=== PATIENT | female | born 1990 | race Caucasian/White ===

== ENCOUNTER → 2017-12-11 22:50 | Observation (INO) ==
[2017-12-11 19:58] LABS: Bilirubin,Urine Negative (Negative); Blood,Urine Moderate (Negative); Clarity,Urine Cloudy (Clear); Color,Urine Yellow (Yellow); Glucose,Urine (UA) Normal (Normal); Ketones,Urine Trace mg/dL (Negative); Leukocyte Esterase,Urine Large (Negative); Nitrite,Urine Negative (Negative); PH,Urine 6.5 pH Units (5.0-8.0); Protein,Urine 30 mg/dL (Neg-Trace); Specific Gravity,Urine 1.007 (1.010-1.025); Urobilinogen,Urine Normal (Normal)
[2017-12-11 20:01] LABS: Hyaline Casts,Urine None Seen per lpf (None-Few); Squamous Epithelial Cell,Urine Moderate per lpf (None-Few); WBC,Urine 30-50 per hpf (0-3)
[2017-12-11 20:02] LABS: Amphetamine Screen,Urine Negative ng/mL (Cutoff=1000); Barbiturate Screen,Urine Negative ng/mL (Cutoff=200); Benzodiazepines Screen,Urine Negative ng/mL (Cutoff=200); Cannabinoid Screen,Urine Positive ng/mL (Cutoff = 50); Cocaine Screen,Urine Negative ng/mL (Cutoff= 300); Opiate Screen,Urine Negative ng/mL (Cutoff=300); Phencyclidine Screen,Urine Negative ng/mL (Cutoff=25)
[2017-12-11 20:17] LABS: Bacteria,Urine Few per hpf (None-Few); RBC,Urine 0-3 per hpf (0-3)
--- NOTE | 2017-12-11 21:22 | OB/GYN Progress Note ---
Date of Encounter: 12/11/17 Time of Encounter: 21:18 - Assessment and Plan (1) 27 weeks gestation of Current Visit: Yes Status: Acute Admit for observation of labor evaluation. Discussed plan of care and course with Dr. Chisholm. (2) Vaginal discharge during in second trimester Current Visit: Yes Status: Acute Collect vaginosis panel. Treat as indicated. (3) Placenta previa antepartum in second trimester Current Visit: Yes Status: Acute Small amount of pink discharge noted. Patient has a known previa and subchorionic bleed on U/S as of 11/27/2017. Follow up as scheduled with Dr. Faith. Subjective - Subjective Principal diagnosis: Nausea, vaginal discharge Interval history: Patient is a at 27 weeks who arrives today with complaint of nausea and vomiting along with some vaginal discharge/bleeding. She is known to have a placenta previa as of an U/S performed on 11/27/2017. She denies intercourse in the last 48 hours, states she was put on pelvic rest and has been compliant. She reports positive movement, denies leakage of fluid. States she has had vaginal bleeding for the past couple of months and Dr. Faith is aware. Antepartum ROS: vaginal bleeding, movement normal, no loss of fluid Objective - Vital Signs Vital Signs: Intake and Output 12/11/17 12/11/17 12/11/17 07:59 15:59 23:59 Other: Weight 62.7 kg Patient Weight 12/11/17 23:59 Weight 62.7 kg - Exam FHR: category 1 FHR comments: FHR 130 bpm, moderate variability, +10x10 accels, no decels. Appropriate for gestational age. No uterine activity noted. Auscultation: bilateral: normal Abdomen: Present: normal appearance, soft, gravid Uterus: Present: normal Comments: Deferred vaginal exam due to placenta previa. - Labs Labs: Abnormal lab results Urine Clarity Cloudy (Clear) A 12/11/17 19:35 Ur Specific [place] 1.007 (1.010-1.025) L 12/11/17 19:35 Urine Protein 30 mg/dL (Neg-Trace) H 12/11/17 19:35 Urine Ketones Trace mg/dL (Negative) H 12/11/17 19:35 Urine Blood Moderate (Negative) H 12/11/17 19:35 Ur Leukocyte Esterase Large (Negative) H 12/11/17 19:35 Urine Microscopic WBC 30-50 per hpf (0-3) H 12/11/17 19:35 Ur Squamous Epith Cells Moderate per lpf (None-Few) H 12/11/17 19:35 Ur Culture Indicated? YES (NO) A 12/11/17 19:35 U Marijuana (THC) Screen Positive ng/mL (Cutoff = 50) H 12/11/17 19:35
[2017-12-11 22:19] LABS: Candida DNA Not Detected (Not Detect); Gardnerella DNA DETECTED (Not Detect); Trichomonas DNA Not Detected (Not Detect)
--- NOTE | 2017-12-11 22:52 | Discharge Summary ---
Date of Encounter: 12/11/17 Time of Encounter: 22:52 - Discharge Diagnosis (1) 27 weeks gestation of Priority: Primary Status: Acute Comments: Admitted for observation of labor. No contractions noted on monitor. History of known placenta previa with this . Plan of care discussed with Dr. Chisholm. (2) Vaginal discharge during in second trimester Priority: Secondary Status: Acute Comments: Positive for bacterial vaginosis. Prescription sent for Flagyl 500 mg by mouth twice a day 7 days. Patient instructed to remain on pelvic rest until released by her provider. (3) Placenta previa antepartum in second trimester Priority: Secondary Status: Acute Comments: Scant amount of pink discharge noted on vulva. Patient is scheduled to follow-up with Dr. Faith for regular care and ultrasound. Patient to remain on pelvic rest until released by her provider - Discharge Medications Prescriptions: metroNIDAZOLE [Metronidazole] 500 mg PO BID #14 tablet Home Medications: 19 Tablet 1 tab PO DAILY 04/07/15 [History] Zantac 150 mg PO DAILY 04/07/15 [History] metroNIDAZOLE [Metronidazole] 500 mg PO BID #14 tablet 12/11/17 [Rx] Allergies/Adverse Reactions: Allergy/AdvReac Type Severity Reaction Status Date / Time No Known Allergies Allergy Verified 09/12/17 11:30 Data Procedures and tests throughout hospitalization: Laboratory Tests 12/11/17 12/11/17 12/11/17 19:35 19:35 20:59 Urine Color Yellow Urine Clarity Cloudy A Urine pH 6.5 Ur Specific [place] 1.007 L Urine Protein 30 H Urine Glucose (UA) Normal Urine Ketones Trace H Urine Blood Moderate H Urine Nitrite Negative Urine Bilirubin Negative Urine Urobilinogen Normal Ur Leukocyte Esterase Large H Urine Microscopic RBC 0-3 Urine Microscopic WBC 30-50 H Ur Squamous Epith Cells Moderate H Urine Bacteria Few Hyaline Casts None Seen Ur Culture Indicated? YES A Urine Opiates Screen Negative Ur Barbiturates Screen Negative Ur Phencyclidine Scrn Negative Ur Amphetamines Screen Negative U Benzodiazepines Scrn Negative Urine Cocaine Screen Negative U Marijuana (THC) Screen Positive H Ur Drug Screen Interp See Below Jennifer species DNA Not Detected Gardnerella DNA Probe DETECTED A Trichomonas DNA Probe Not Detected Labs on day of discharge: Labs from last 24 hours 12/11/17 12/11/17 12/11/17 20:59 19:35 19:35 Urine Color Yellow Urine Clarity Cloudy A Urine pH 6.5 Ur Specific [place] 1.007 L Urine Protein 30 H Urine Glucose (UA) Normal Urine Ketones Trace H Urine Blood Moderate H Urine Nitrite Negative Urine Bilirubin Negative Urine Urobilinogen Normal Ur Leukocyte Esterase Large H Urine Microscopic RBC 0-3 Urine Microscopic WBC 30-50 H Ur Squamous Epith Cells Moderate H Urine Bacteria Few Hyaline Casts None Seen Ur Culture Indicated? YES A Urine Opiates Screen Negative Ur Barbiturates Screen Negative Ur Phencyclidine Scrn Negative Ur Amphetamines Screen Negative U Benzodiazepines Scrn Negative Urine Cocaine Screen Negative U Marijuana (THC) Screen Positive H Ur Drug Screen Interp See Below Jennifer species DNA Not Detected Gardnerella DNA Probe DETECTED A Trichomonas DNA Probe Not Detected Date of admission: 12/11/17 19:24 Discharging clinician: Shruthi Davis Anticipated date of discharge: 12/11/17 - Patient Status Disposition: Home, Self-Care Condition: Good Functional capacity at discharge: independent ambulation Overall status at discharge: patient is back to baseline - Discharge Instructions Instructions: Metronidazole (By mouth), Bacterial Vaginosis (DC) Additional Instructions: LABOR AND DELIVERY DISCHARGE INSTRUCTIONS Signs and Symptoms to be Reported to your Doctor Immediately: * Sudden gush, continuous or intermittent lead of fluid from vagina (note the time of gush and color of fluid) * Onset of bright red vaginal bleeding with or without pain (if you had a vaginal exam during this visit you may notice some dark red spotting. This is normal.) * Lower abdominal cramping or backache that is premenstrual-like feeling. * More than 6 contractions in one hour. * Burning during urination, having to urinate more frequently or pain in your mid-back. * A change in the baby's activity. This could be an increase or decrease in activity. * Severe headache which does not go away with tylenol. * Sudden swelling in the face, hands, arms and/or legs. * Upper abdominal pain - sometimes associated with heartburn or nausea and is not relieved by Maalox, Mylanta or Tums. * Dizziness or blurred vision or visual disturbances (seeing stars/lights). * Kick Counts One hour after a meal, lay down on one side in a quiet place. Count the number of jammie the baby moves during an hour. If less than 6 movements, notify your physician. Diet: *Force fluids - 8-10 tall glasses of fluid per day. May include popsicles and jello. *Limit caffeine - this includes chocolate, coffee, tea, any soft drink containing such as all aba, Yaya Yellow and Mountain Dew Follow up all schedule appointments - Diet and Activity Activity: resume usual activities as tolerated, other (continue pelvic rest) Diet: regular diet Hospital Course [employer] Hospital course: Refer to antepartum note. Time Attestation: Total time spent providing and/or coordinating discharge services: Time Spent: Less than 30 minutes Exam - Constitutional General appearance IM: A&O X 3, pleasant, no acute distress - Respiratory Respiratory exam: Present: CTAB - Cardiovascular Cardiovascular exam IM: Present: RRR, +S1, +S2 - GI/Abdominal GI/Abdominal exam IM: normal bowel sounds - Neurological Exam Neurological exam: alert, normal gait, oriented X3, reflexes normal - VTE Reasons for not Prescribing Prophylaxis: Treatment not Indicated - Low risk for VTE
== END | disposition home or self-care (01) ==
LOC: 1NENULAB
PROVIDERS: ADMIT Registered Nurse; ATTEND Registered Nurse

== ENCOUNTER 2017-12-13 12:37 | Inpatient (IN) ==
[2017-12-13] MEDS ORDERED: Acetaminophen 325 MG TABLET PO PRN (12:41)
[2017-12-13] MEDS ORDERED: Measles/Mumps/Rubella Vacc 0.5 ML VIAL SQ PRN (12:41)
[2017-12-13] MEDS ORDERED: Ibuprofen 600 MG TABLET PO PRN (12:41)
[2017-12-13] MEDS ORDERED: Oxytocin 20 units/ LR 1000 mL 20 UNIT/1,000 ML BAG IVC ONE (12:42)
[2017-12-13] MEDS ORDERED: Oxytocin 20 units/ LR 1000 mL 20 UNIT/1,000 ML BAG IVC SCH (12:45)
[2017-12-13] MEDS ORDERED: metroNIDAZOLE 500 MG TABLET PO SCH (13:15)
--- NOTE | 2017-12-13 13:26 | OB/GYN History & Physical ---
Date of Encounter: 12/13/17 Time of Encounter: 13:17 Assessment and Plan (1) Tobacco abuse Current visit: Yes Status: Acute (2) Polysubstance abuse Current visit: Yes Status: Acute Pt to see SW prior to discharge. (3) delivery Current visit: Yes Status: Acute Pt admitted to L&D. Plan for IV pitocin and observation in L&D for 2 hours before transfer to floor. Tox screen, CBC, and Hep C antibody collected upon arrival. (4) Noncompliance Current visit: Yes Status: Acute (5) Vaginal delivery Current visit: No Status: Acute History of Present Illness Chief complaint: s/p vaginal delivery at home HPI: Ms. Shipley is a 27 year old female presenting via ambulance s/p at home at 27w3d. Pt reports she was having pains this am that were similar to the pains she has been having for the last few days. She went to sit on the toilet and was able to feel something in her vagina. She called the ambulance and then proceeded to deliver her baby and her placenta before the squad arrived. She reports she caught the baby and wrapped her in a blanket. She states the baby was breathing initially but then stopped. The chief ii dispatcher told her to put her mouth over the baby's mouth and nose and blow. The patient states that worked for a short time but the baby was purple by the time the ambulance got there. She is unsure how long it took the ambulance to arrive but the s/o believes it was about 15 minutes. This has been complicated by placenta previa, polysubstance abuse, tobacco use, and non-compliance with visits. She also reports she was seen on Saturday and found to have BV. She has taken 2 doses of the flagyl that she was prescribed. She admits to using methamphetamine 2 months ago and using marijuana a few days ago. She received 1 liter of LR enroute. Lochia has been moderate. Past Med Surg Social Fam HX - Past Medical History Medical history: no medical history Psychiatric history: no psych history - Past Surgical History Surgical History: other Additional surgical history: tonsillectomy - Social History Smoking Status: Current every day smoker Smokeless Tobacco Status: No Alcohol use: none Drug use: marijuana - Family History Mother Living Status: Hx Family Cardiac Disorders: No Hx Family Respiratory Disorders: No Hx Family Cancer: No Hx Family GI Disorders: Yes (Chrones disease) Hx Family Endocrine Disorder: No Hx Family Neuromuscular Disorders: No Hx Family Neurologic Disorders: No Hx Family HEENT Disorders: No Hx Family Autoimmune Disorders: No Obstetrical History - Pregnancies : 4 Para: 3 Term: 3 : 1 Ab's: 0 Livin - History/Complications History/Complications: 2 full term vaginal deliveries without complications prior to today. Medications and Allergies 19 Tablet 1 tab PO DAILY 04/07/15 [History] Zantac 150 mg PO DAILY 04/07/15 [History] metroNIDAZOLE [Metronidazole] 500 mg PO BID #14 tablet 12/11/17 [Rx] Allergy/AdvReac Type Severity Reaction Status Date / Time No Known Allergies Allergy Verified 09/12/17 11:30 Review of System OB All systems PM: reviewed and no additional remarkable complaints except as stated Exam - Constitutional Constitutional: well developed, no acute distress - HEENT HEENT: Pallor - Lungs Respiratory exam: CTAB - Cardiovascular Cardiovascular exam: RRR, +S1, +S2 - Abdomen Abdomen: Present: bowel sounds normal Abdomen detail: right lower quadrant: tenderness (tender to fundal massage), left lower quadrant: tenderness - Extremities Extremities exam: normal inspection - Vulva Vulva: bilateral: normal - Vagina Vagina: Present: discharge (moderate lochia, no lacerations noted) - Uterus Uterus exam: Present: tender (to palpation, U/1, firm with massage) - Anus/Rectum Anus/Rectum: Present: normal perianal skin (no lacerations noted, 100ml blood and clots expressed with bimanual exam) Results All other labs normal. - VTE Reasons for not Prescribing Prophylaxis: Treatment not Indicated - Low risk for VTE
[2017-12-13 13:32] LABS: Hematocrit 22.2 % (35.3-44.9); Hemoglobin 7.4 g/dL (11.5-15.4); Mean Corpuscular HGB Conc 33.3 g/dL (31.6-35.5); Mean Corpuscular Hemoglobin 29.5 pg (28.0-33.3); Mean Corpuscular Volume 88.4 fL (83.0-100.0); Mean Platelet Volume 10.8 fL (9.4-12.4); Monocytes # 0.8 K/mcL (0.0-1.3); Nucleated Red Blood Cells 0.2 /100 WBC (0); Platelet Count 150 K/mcL (140-400); Red Blood Count 2.51 M/mcL (3.82-4.97); Red Cell Distribution Width 12.3 % (11.5-14.5)
[2017-12-13 13:46] LABS: Amphetamine Screen,Urine Negative ng/mL (Cutoff=1000); Barbiturate Screen,Urine Negative ng/mL (Cutoff=200); Benzodiazepines Screen,Urine Negative ng/mL (Cutoff=200); Cannabinoid Screen,Urine Positive ng/mL (Cutoff = 50); Cocaine Screen,Urine Negative ng/mL (Cutoff= 300); Opiate Screen,Urine Negative ng/mL (Cutoff=300); Phencyclidine Screen,Urine Negative ng/mL (Cutoff=25)
[2017-12-13 14:08] LABS: Lymphocytes # 0.4 K/mcL (0.6-4.6); Platelet Estimate Normal (Normal)
[2017-12-13 17:53] LABS: Basophils % 0.1 %; Eosinophils % 0.2 %; Hematocrit 21.8 % (35.3-44.9); Hemoglobin 7.4 g/dL (11.5-15.4); Immature Granulocytes % 0.5 % (0-4); Lymphocytes # 1.1 K/mcL (0.6-4.6); Lymphocytes % 9.4 %; Mean Corpuscular HGB Conc 33.9 g/dL (31.6-35.5); Mean Corpuscular Hemoglobin 29.8 pg (28.0-33.3); Mean Corpuscular Volume 87.9 fL (83.0-100.0); Mean Platelet Volume 10.5 fL (9.4-12.4); Monocytes # 0.8 K/mcL (0.0-1.3); Monocytes % 6.6 %; Neutrophils # 9.4 K/mcL (1.6-8.9); Platelet Count 142 K/mcL (140-400); Red Blood Count 2.48 M/mcL (3.82-4.97); Red Cell Distribution Width 12.4 % (11.5-14.5); Segmented Neutrophils % 83.2 %
--- NOTE | 2017-12-13 18:05 | Discharge Summary ---
Date of Encounter: 12/13/17 Time of Encounter: 18:03 - Discharge Diagnosis (1) Tobacco abuse Priority: Secondary Status: Acute (2) Polysubstance abuse Priority: Secondary Status: Acute (3) delivery Priority: Primary Status: Acute Comments: Pt stable for since admission. Bleeding light. Hgb stable. Discharge home so pt may visit baby at [facility]. POC discussed with Dr. Palencia. precautions discussed with pt. (4) Noncompliance Priority: Secondary Status: Acute (5) Vaginal delivery Priority: Secondary Status: Acute - Discharge Medications Prescriptions: RX: Ibuprofen [Motrin] 600 mg PO Q6HR PRN #30 tablet PRN Reason: Cramping RX: Docusate [Colace] 100 mg PO BID #60 capsule RX: Ferrous Sulfate 325 mg PO BIDWM #60 tablet Home Medications: 19 Tablet 1 tab PO DAILY 04/07/15 [History] RX: metroNIDAZOLE [Metronidazole] 500 mg PO BID #14 tablet 12/11/17 [Rx] RX: Acetaminophen [Tylenol] 650 mg PO Q6HR PRN tablet 12/13/17 [Rx] RX: Docusate [Colace] 100 mg PO BID #60 capsule 12/13/17 [Rx] RX: Ferrous Sulfate 325 mg PO BIDWM #60 tablet 12/13/17 [Rx] RX: Ibuprofen [Motrin] 600 mg PO Q6HR PRN #30 tablet 12/13/17 [Rx] Allergies/Adverse Reactions: Allergy/AdvReac Type Severity Reaction Status Date / Time No Known Allergies Allergy Verified 09/12/17 11:30 Data Procedures and tests throughout hospitalization: Laboratory Tests 12/13/17 12/13/17 12/13/17 13:00 13:00 13:00 WBC 10.2 RBC 2.51 L Hgb 7.4 L Hct 22.2 L MCV 88.4 MCH 29.5 MCHC 33.3 RDW 12.3 Plt Count 150 MPV 10.8 Immature Gran % Seg Neutrophils % 82.0 Band Neutrophils % 6.0 H Lymphocytes % 4.0 Monocytes % 8.0 Eosinophils % Basophils % Neutrophils # 9.0 H Lymphocytes # 0.4 L Monocytes # 0.8 Eosinophils # Basophils # Nucleated RBCs/100 WBC 0.2 H Platelet Estimate Normal Urine Opiates Screen Negative Ur Barbiturates Screen Negative Ur Phencyclidine Scrn Negative Ur Amphetamines Screen Negative U Benzodiazepines Scrn Negative Urine Cocaine Screen Negative U Marijuana (THC) Screen Positive H Ur Drug Screen Interp See Below Hepatitis C Ab Screen Nonreactive 12/13/17 17:42 WBC 11.3 H RBC 2.48 L Hgb 7.4 L Hct 21.8 L MCV 87.9 MCH 29.8 MCHC 33.9 RDW 12.4 Plt Count 142 MPV 10.5 Immature Gran % 0.5 Seg Neutrophils % 83.2 Band Neutrophils % Lymphocytes % 9.4 Monocytes % 6.6 Eosinophils % 0.2 Basophils % 0.1 Neutrophils # 9.4 H Lymphocytes # 1.1 Monocytes # 0.8 Eosinophils # 0.0 Basophils # 0.0 Nucleated RBCs/100 WBC Platelet Estimate Urine Opiates Screen Ur Barbiturates Screen Ur Phencyclidine Scrn Ur Amphetamines Screen U Benzodiazepines Scrn Urine Cocaine Screen U Marijuana (THC) Screen Ur Drug Screen Interp Hepatitis C Ab Screen Labs on day of discharge: Labs from last 24 hours 12/13/17 12/13/17 12/13/17 17:42 13:00 13:00 WBC 11.3 H 10.2 RBC 2.48 L 2.51 L Hgb 7.4 L 7.4 L Hct 21.8 L 22.2 L MCV 87.9 88.4 MCH 29.8 29.5 MCHC 33.9 33.3 RDW 12.4 12.3 Plt Count 142 150 MPV 10.5 10.8 Immature Gran % 0.5 Seg Neutrophils % 83.2 82.0 Band Neutrophils % 6.0 H Lymphocytes % 9.4 4.0 Monocytes % 6.6 8.0 Eosinophils % 0.2 Basophils % 0.1 Neutrophils # 9.4 H 9.0 H Lymphocytes # 1.1 0.4 L Monocytes # 0.8 0.8 Eosinophils # 0.0 Basophils # 0.0 Nucleated RBCs/100 WBC 0.2 H Platelet Estimate Normal Urine Opiates Screen Negative Ur Barbiturates Screen Negative Ur Phencyclidine Scrn Negative Ur Amphetamines Screen Negative U Benzodiazepines Scrn Negative Urine Cocaine Screen Negative U Marijuana (THC) Screen Positive H Ur Drug Screen Interp See Below Hepatitis C Ab Screen 12/13/17 13:00 WBC RBC Hgb Hct MCV MCH MCHC RDW Plt Count MPV Immature Gran % Seg Neutrophils % Band Neutrophils % Lymphocytes % Monocytes % Eosinophils % Basophils % Neutrophils # Lymphocytes # Monocytes # Eosinophils # Basophils # Nucleated RBCs/100 WBC Platelet Estimate Urine Opiates Screen Ur Barbiturates Screen Ur Phencyclidine Scrn Ur Amphetamines Screen U Benzodiazepines Scrn Urine Cocaine Screen U Marijuana (THC) Screen Ur Drug Screen Interp Hepatitis C Ab Screen Nonreactive Date of admission: 12/13/17 12:37 Primary care physician: PCP NONE Consults: 12/13/17 12:41 Consult to Customer Complaint Service Supervisor [CONS] Routine Reason for SW Consult: substance abuse, Precip delivery at home at 27 weeks. Discharging clinician: Dotty Anderson Anticipated date of discharge: 12/13/17 - Patient Status Disposition: Home, Self-Care Condition: Good - Discharge Instructions Follow Up With: NONE,PCP [Primary Care Provider] - Murali Faith MD [Partnered Physician] - Hospital Course Reason for admission: other (vaginal delivery) Laceration: none Other procedures: none complications: none Discharge diagnosis: delivery baby: female Hospital course: Pt presented to L&D following vaginal delivery at home at 27 weeks. She had an uncomplicated stay for approx 6 hours and was then discharged home to be with her baby. Time Attestation: Total time spent providing and/or coordinating discharge services: Time Spent: Less than 30 minutes Exam - Constitutional Vitals: Temp Pulse Resp BP Pulse Ox 97.7 F 76 16 103/67 99 12/13/17 16:15 12/13/17 16:15 12/13/17 16:15 12/13/17 16:15 12/13/17 16:15 General appearance IM: A&O X 3 - Uterine Tone: Firm - Neurological Exam Neurological exam: normal gait, oriented X3 - Psychiatric Additional comments: appropriately sad
[2017-12-13 18:31] VITALS: BP 112/75
[2017-12-14] MEDS ORDERED: Prenatal Vit/FA 1 EACH TABLET PO SCH (09:00)
== END 2017-12-13 18:30 | disposition home or self-care (01) | DRG 560 ==
LOC: 1NENULAB 12:37 → 1NENUOBS 15:52
PROVIDERS: ADMIT Obstetrics & Gynecology; ATTEND Obstetrics & Gynecology

== ENCOUNTER 2019-10-06 13:02 | Inpatient (IN) ==
[~2019-10-06 13:02] MED LIST: *HR* FentaNYL (PF) 100 MCG/2 ML VIAL IVP PRN; Famotidine 20 MG/2 ML VIAL IVP PRN; Metoclopramide 10 MG/2 ML VIAL IVP PRN; Naloxone 0.4 MG/ML INJ IVP PRN; Ondansetron 4 MG/2 ML VIAL IVP PRN; Penicillin G Potassium 5,000,000 UNIT in 0.9 % Sodium Chloride Mini Bag 100 ML IVPB ONE; Ringers Solution, Lactated 1,000 ML IVC SCH
[2019-10-06 13:18] LABS: Basophils # 0.1 K/mcL (0.0-0.2); Basophils % 0.5 %; Eosinophils # 0.2 K/mcL (0.0-0.6); Eosinophils % 1.4 %; Hematocrit 31.2 % (35.3-44.9); Hemoglobin 9.9 g/dL (11.5-15.4); Immature Granulocytes % 1.1 % (0-4); Lymphocytes % 23.7 %; Mean Corpuscular HGB Conc 31.7 g/dL (31.6-35.5); Mean Corpuscular Hemoglobin 28.4 pg (28.0-33.3); Mean Corpuscular Volume 89.7 fL (83.0-100.0); Monocytes # 0.9 K/mcL (0.0-1.3); Monocytes % 6.9 %; Neutrophils # 8.3 K/mcL (1.6-8.9); Nucleated Red Blood Cells 0.2 /100 WBC (0); Platelet Count 237 K/mcL (140-400); Red Blood Count 3.48 M/mcL (3.82-4.97); Red Cell Distribution Width 15.4 % (11.5-14.5); Segmented Neutrophils % 66.4 %; White Blood Count 12.5 K/mcL (4.3-11.1)
[2019-10-06 13:32] LABS: Amphetamine Screen,Urine Negative ng/mL (Cutoff=1000); Barbiturate Screen,Urine Negative ng/mL (Cutoff=200); Benzodiazepines Screen,Urine Negative ng/mL (Cutoff=200); Cannabinoid Screen,Urine Positive ng/mL (Cutoff = 50); Cocaine Screen,Urine Negative ng/mL (Cutoff= 300); Opiate Screen,Urine Negative ng/mL (Cutoff=300); Phencyclidine Screen,Urine Negative ng/mL (Cutoff=25)
[2019-10-06] MEDS ORDERED: Oxytocin 20 units/ LR 1000 mL 20 UNIT/1,000 ML BAG IVC ONE (15:58)
[2019-10-06] MEDS ORDERED: Penicillin G Potassium 2,500,000 UNIT/105 ML MLS IVPB SCH (17:00)
[2019-10-06] MEDS ORDERED: Oxytocin 20 units/ LR 1000 mL 20 UNIT/1,000 ML BAG IVC SCH (20:45)
[2019-10-07] MEDS ORDERED: Benzocaine/Menthol 56 GM AEROSOL SPRAY TP PRN (00:54)
[2019-10-07] MEDS ORDERED: Measles/Mumps/Rubella Vacc 0.5 ML VIAL SQ PRN (00:54)
[2019-10-07] MEDS ORDERED: Rho Immune Globulin 1,500 UNIT SYRINGE IM PRN (00:54)
[2019-10-07] MEDS ORDERED: Acetaminophen 325 MG TABLET PO PRN (00:54)
[2019-10-07] MEDS ORDERED: Lanolin 7 G OINT...G. TP PRN (00:54)
[2019-10-07] MEDS ORDERED: *HR* HYDROcodone/Acet 5/325 mg TABLET PO PRN (00:54)
[2019-10-07] MEDS ORDERED: Oxytocin 20 units/ LR 1000 mL 20 UNIT/1,000 ML BAG IVC SCH (00:54)
[2019-10-07] MEDS ORDERED: Ibuprofen 600 MG TABLET PO PRN (00:54)
[2019-10-07] MEDS: Prenatal Vit/FA 1 EACH TABLET PO SCH (07:44)
[2019-10-07 10:15] LABS: Basophils % 0.3 %; Eosinophils # 0.2 K/mcL (0.0-0.6); Hematocrit 31.8 % (35.3-44.9); Hemoglobin 10.1 g/dL (11.5-15.4); Immature Granulocytes % 0.5 % (0-4); Lymphocytes # 2.4 K/mcL (0.6-4.6); Lymphocytes % 15.8 %; Mean Corpuscular HGB Conc 31.8 g/dL (31.6-35.5); Mean Corpuscular Volume 88.1 fL (83.0-100.0); Mean Platelet Volume 10.9 fL (9.4-12.4); Monocytes # 0.9 K/mcL (0.0-1.3); Monocytes % 5.7 %; Neutrophils # 11.7 K/mcL (1.6-8.9); Platelet Count 247 K/mcL (140-400); Red Blood Count 3.61 M/mcL (3.82-4.97); Red Cell Distribution Width 15.6 % (11.5-14.5); Segmented Neutrophils % 76.7 %; White Blood Count 15.2 K/mcL (4.3-11.1)
[2019-10-08] MEDS: Prenatal Vit/FA 1 EACH TABLET PO SCH (08:19)
[2019-10-08 08:21] VITALS: BP 125/78
== END 2019-10-08 12:09 | disposition home or self-care (01) | DRG 560 ==
LOC: 1NENULAB → 1NENUOBS 10-07 00:58
PROVIDERS: ADMIT Obstetrics & Gynecology; ATTEND Advanced Practice Midwife

== ENCOUNTER 2019-10-30 22:58 | Observation (INO) ==
[2019-10-31 00:54] LABS: Basophils % 0.3 %; Eosinophils % 0.2 %; Hematocrit 31.6 % (35.3-44.9); Hemoglobin 9.7 g/dL (11.5-15.4); Immature Granulocytes % 0.4 % (0-4); Lymphocytes # 2.6 K/mcL (0.6-4.6); Lymphocytes % 17.8 %; Mean Corpuscular HGB Conc 30.7 g/dL (31.6-35.5); Mean Corpuscular Hemoglobin 27.2 pg (28.0-33.3); Mean Corpuscular Volume 88.8 fL (83.0-100.0); Mean Platelet Volume 10.1 fL (9.4-12.4); Monocytes # 0.6 K/mcL (0.0-1.3); Neutrophils # 11.2 K/mcL (1.6-8.9); Platelet Count 257 K/mcL (140-400); Red Blood Count 3.56 M/mcL (3.82-4.97); Segmented Neutrophils % 77.3 %; White Blood Count 14.5 K/mcL (4.3-11.1)
[2019-10-31 01:14] LABS: BUN/Creatinine Ratio 22 (6-26); Blood Urea Nitrogen 11 mg/dL (6-20); Calcium 8.8 mg/dL (8.6-10.3); Carbon Dioxide 21 mEq/L (23-29); Chloride 108 mEq/L (98-107); Glucose 81 mg/dL (70-105); Osmolality,Calculated 282 (280-300); Potassium 3.9 mEq/L (3.5-5.1); Sodium 137 mEq/L (136-145); eGFR For African Americans > 60 (> 60); eGFR For Non-African Americans > 60 (> 60)
[2019-10-31 01:15] LABS: Albumin 3.5 g/dL (3.5-5.7); Albumin/Globulin Ratio 1.2 (1.1-2.2); Bilirubin,Indirect 0.3 mg/dL (0.0-1.0); Bilirubin,Total 0.3 mg/dL (0.3-1.0); Globulin 2.9 g/dL (2.4-3.5); Total Protein 6.4 g/dL (6.4-8.9)
[2019-10-31] MEDS ORDERED: 0.9 % Sodium Chloride 1,000 ML IVC ONE (01:23)
[2019-10-31] MEDS ORDERED: Ringers Solution, Lactated 1,000 ML IVC SCH (07:15)
[2019-10-31] MEDS ORDERED: Albuterol 2.5 MG/3 ML NEBULIZER IH ONE (07:17)
[2019-10-31] MEDS ORDERED: *HR* OxyCODONE/APAP 5/325 TABLET PO PRN ×2 (09:12→15:00)
[2019-10-31] MEDS ORDERED: *HR* Promethazine 25 MG/ML VIAL IVP PRN (09:12)
[2019-10-31] MEDS ORDERED: Naloxone 0.4 MG/ML INJ IVP PRN (09:12)
[2019-10-31] MEDS ORDERED: flumazeniL 0.5 MG/5 ML VIAL IVP PRN (09:12)
[2019-10-31] MEDS ORDERED: *HR* Meperidine 25 MG/ML SYRINGE IVP PRN (09:12)
[2019-10-31] MEDS ORDERED: *HR* HYDROmorphone PF 0.5 MG/0.5 ML SYRINGE IVP PRN (09:12)
[2019-10-31] MEDS ORDERED: Ondansetron 4 MG/2 ML VIAL IVP ONE (09:12)
[2019-10-31] MEDS ORDERED: *HR* FentaNYL (PF) 100 MCG/2 ML VIAL ONE (09:15)
[2019-10-31] MEDS ORDERED: Dexamethasone 4 MG/ML VIAL ONE (09:15)
[2019-10-31] MEDS ORDERED: *HR* Propofol 200 MG/20 ML VIAL IVP ONE (09:15)
[2019-10-31] MEDS ORDERED: 0.9 % Sodium Chloride 500 ML IVC SCH (09:15)
[2019-10-31] MEDS ORDERED: Lidocaine -MPF 2% 5 ML VIAL ONE (09:16)
[2019-10-31] MEDS ORDERED: Acetaminophen IV 1,000 MG/100 ML INFUS..BTL ONE (09:20)
[2019-10-31] MEDS ORDERED: Ketorolac 30 MG/ML VIAL ONE (10:35)
[2019-10-31] MEDS ORDERED: *HR* Belladonna Alkaloids/Opium 30 MG RECTAL SUPPOSITORY RC STA (10:39)
[2019-10-31] MEDS ORDERED: MetroNIDAZOLE 500 MG/100 ML 500 MG/100 ML BAG IVPB ONE (10:45)
[2019-10-31] MEDS ORDERED: EPHEDrine 50 MG/ML VIAL ONE (10:49)
[2019-10-31] MEDS ORDERED: Ringers Solution, Lactated 1,000 ML ONE ×3 (10:50→11:18)
[2019-10-31] MEDS ORDERED: 0.9 % Sodium Chloride 250 ML ONE (11:11)
[2019-10-31] MEDS ORDERED: Silver Nitrate Applicator 1 STICK..EA. TP ONE ×2 (11:22→11:35)
[2019-10-31] MEDS ORDERED: Ferric Subsulfate 8 ML TOPICAL TP STA (11:32)
[2019-10-31 13:58] LABS: Basophils % 0.2 %; Eosinophils # 0.1 K/mcL (0.0-0.6); Eosinophils % 0.9 %; Hematocrit 22.5 % (35.3-44.9); Immature Granulocytes % 0.2 % (0-4); Lymphocytes # 1.6 K/mcL (0.6-4.6); Mean Corpuscular HGB Conc 30.7 g/dL (31.6-35.5); Mean Corpuscular Hemoglobin 27.5 pg (28.0-33.3); Mean Corpuscular Volume 89.6 fL (83.0-100.0); Mean Platelet Volume 10.8 fL (9.4-12.4); Monocytes # 0.1 K/mcL (0.0-1.3); Monocytes % 1.6 %; Neutrophils # 7.1 K/mcL (1.6-8.9); Platelet Count 214 K/mcL (140-400); Red Blood Count 2.51 M/mcL (3.82-4.97); Red Cell Distribution Width 15.9 % (11.5-14.5); Segmented Neutrophils % 79.1 %
[2019-10-31 13:59] LABS: Hemoglobin 6.9 g/dL (11.5-15.4)
[2019-10-31] MEDS ORDERED: Ondansetron 4 MG/2 ML VIAL IVP PRN (15:00)
[2019-10-31] MEDS ORDERED: Acetaminophen 325 MG TABLET PO SCH (15:00)
[2019-10-31] MEDS ORDERED: Ibuprofen 600 MG TABLET PO SCH (15:00)
[2019-10-31] MEDS ORDERED: Doxycycline 100 MG in 0.9 % Sodium Chloride Mini Bag 100 ML IVPB ONE (15:00)
[2019-10-31] MEDS ORDERED: Metoclopramide 10 MG/2 ML VIAL IVP PRN (15:00)
[2019-10-31] MEDS ORDERED: Oxytocin 20 units/ LR 1000 mL 20 UNIT/1,000 ML BAG IVC SCH (15:00)
[2019-10-31 17:19] LABS: Basophils % 0.1 %; Eosinophils % 0.1 %; Hematocrit 25.8 % (35.3-44.9); Hemoglobin 8.2 g/dL (11.5-15.4); Immature Granulocytes % 0.3 % (0-4); Lymphocytes % 9.4 %; Mean Corpuscular HGB Conc 31.8 g/dL (31.6-35.5); Mean Corpuscular Hemoglobin 28.1 pg (28.0-33.3); Mean Corpuscular Volume 88.4 fL (83.0-100.0); Mean Platelet Volume 10.2 fL (9.4-12.4); Monocytes % 0.3 %; Neutrophils # 9.5 K/mcL (1.6-8.9); Platelet Count 221 K/mcL (140-400); Red Blood Count 2.92 M/mcL (3.82-4.97); Red Cell Distribution Width 14.9 % (11.5-14.5); Segmented Neutrophils % 89.8 %; White Blood Count 10.6 K/mcL (4.3-11.1)
[2019-10-31 20:47] VITALS: BP 112/77
[2019-10-31] MEDS ORDERED: Methylergonovine 0.2 MG/ML AMPUL IM ONE (21:56)
== END 2019-10-31 21:57 | disposition home or self-care (01) ==
LOC: 1NENUOBS 22:58 → EMEROOARM 22:58 → 1NENUOBS 10-31 05:44
PROVIDERS: ADMIT Obstetrics & Gynecology; ATTEND Obstetrics & Gynecology